=== PATIENT | male | born 1955 | race Caucasian/White ===

== ENCOUNTER 2017-11-18 12:56 | Day surgery (SDC) | payer OTHER ==
[2017-11-17 14:40] VITALS: BMI 29.7
[2017-11-18 13:35] LABS: #Eosinphils 0.2 thou/uL (0.0-0.7); #Lymphocytes 1.6 thou/uL (1.20-3.40); #Monocytes 0.7 thou/uL (0.11-0.59); #Neutrophils 5.1 thou/uL (1.40-6.50); %Basophils 0.6 % (0.0-1.0); %Eosinophils 2.5 % (0.0-10.0); %Lymphocytes 20.4 % (21.0-51.0); %Monocytes 9.6 % (0.0-10.0); %Neutrophils 66.9 % (42.0-75.0); Hemoglobin 14.8 g/dL (14.0-18.0); Mean Corpuscular Hemoglobin 30.5 pg (27.0-31.0); Mean Corpuscular Volume 89.7 fl (80.0-94.0); Mean Platelet Volume 8.6 fL (7.4-10.4); Platelet Count 176 thou/uL (130-400); RBC Distribution Width 12.7 % (11.5-14.5); Red Blood Cell (RBC) Count 4.85 mill/uL (4.70-6.10); White Blood Cell (WBC) Count 7.6 thou/uL (4.8-10.8)
[2017-11-18 13:46] LABS: INR-International Normal Ratio 1.1; PTT 28.1 SEC (22.9-36.1); Prothrombin Time 14.1 SEC (12.0-14.7)
[2017-11-18 13:56] LABS: Anion Gap 15 mmol/L (10-20); BUN (Urea Nitrogen) 13 mg/dL (8.4-25.7); Calc. Creatinine Clearance 134 mL/min (70-130); Calcium 9.8 mg/dL (7.8-10.44); Carbon Dioxide 23 mmol/L (23-31); Chloride 105 mmol/L (98-107); Estimated GFR-MDRD Greater than 90; Glucose 97 mg/dL (80-115); Potassium 4.5 mmol/L (3.5-5.1); Sodium 138 mmol/L (136-145)
[2017-11-18] MEDS ORDERED: Diprivan 40 ML ONE (14:14)
[2017-11-18] MEDS ORDERED: Lidocaine 2% PF 100 mg/5 ml Syringe ONE (14:14)
[2017-11-18] MEDS ORDERED: Heparin 10,000 UNITS/1 ML VIAL ONE (14:26)
[2017-11-18] MEDS ORDERED: Lidocaine 1% (PF) 30 ML VIAL ONE (14:28)
[2017-11-18] MEDS ORDERED: Propofol 1,000 MG/100 ML VIAL IV ONE (14:42)
--- NOTE | 2017-11-18 14:52 | ECHO ---
CARDIOLOGY PROCEDURE NOTE: Date: 11/18/17 PROCEDURE: Transesophageal echocardiogram. REASON FOR PROCEDURE: Mr. Nelson is a 62-year-old man with prior history of atrial flutter with prior ablation, who prese nts with recurrent atrial flutter. Xarelto was recently started. This has been going on for a couple of weeks at least. Therefore, a MAGDA was performed prior to planned possible ablation or cardioversio n. PROCEDURE DETAILS: The patient received propofol per anesthesia provider. After adequate level of sedation achieved, the standard transesophageal echocardiogram probe was passed into the esophagus without difficulty. Ritu ent tolerated procedure well. No complications noted. RESULTS: The Left atrium is upper limit normal at 4 cm in horizontal diameter. Left appendage is well visualiz ed and contains no clots. Left atrial appendage velocities are up to 70 cm per second. Four out of fo ur pulmonary veins were seen. Interatrial septum is free of defect. Mitral valve has trace regurgitat ion and very pliable with normal appearance. Left ventricular systolic function is preserved, LVEF ab out 65%. Normal wall thickness and chamber sizes noted. Right-sided chambers are normal in size. Hanna cardial space with trace effusion only. The visualized portion of the ascending and descending aorta without aneurysm or dissection, and only adherent atheroma noted in the descending portion. Aortic va lve is somewhat sclerotic, but not stenotic, and 3 leaflets identified. No significant aortic regurgi tation noted. Trace tricuspid regurgitation seen only. Pulmonic valve is not regurgitant, appears to be normal. CONCLUSION: 1. No intracardiac clots. 2. Normal left ventricular systolic function. 3. Upper limit normal left atrial size. 4. No significant valvular heart disease identified. PLAN: Proceed with the ablation procedure.
[2017-11-18] MEDS ORDERED: DOPamine 400 MG/D5W 250 ML 250 ML ONE (15:20)
[2017-11-18] MEDS ORDERED: Isoproterenol 0.2 MG/1 ML AMP ONE (15:20)
--- NOTE | 2017-11-18 20:18 | OP ---
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 He underwent MAGDA prior to procedure demonstrating no intracardiac clots. Normal LV function, normal left atrial size here for an assessment and possible remission of his arrhythmia circuit. PROCEDURE: The patient received deep sedation with propofol with Anesthesia specialist. After adequ ate level of sedation achieved and the right femoral venous area was prepped and anesthetized using s ubcutaneous lidocaine, the right femoral vein was accessed using ultrasound guidance and two 8-Dominican short sheath was introduced. A decapolar catheter was advanced to the right ventricle, right atrium , His bundle, and CS position. Pacing mapping and recording was performed in each location. Followi ng that, a pace mapping of the atrial flutter was performed. The shortest post-pacing interval was a chieved at the cavotricuspid isthmus very close to the tachycardia cycle length which is low about 26 0 milliseconds. Based on this, the decision was made to map and reablate the cavotricuspid isthmus. With the help of [employer] ST SF catheter, the right atrial map was obtained. The earliest a ctivations were seen in the base of the isthmus close to the IVC. During the activation mapping, flu tter terminated. Following that, a proximal CS pacing initiated and activation map was obtained in t his fashion as well. Earliest activation was clearly located at the base of the cavotricuspid isthmu s near to the inferior vena cava. An ablation was delivered in this area 20 seconds of burn was deli isaura. This successfully eliminated the leak through coming about cavotricuspid isthmus. Following that, the transisthmus time increased from initial 90 milliseconds to 180 milliseconds. The isthmus block was demonstrated by progressively lengthening transisthmus time measurements measured from late ral right atrium towards the line. A comprehensive EP study was also performed demonstrating borderline corrected sinus node recovery ti me at 480 milliseconds. AV Wenckebach cycle was 380 milliseconds. No VA conduction was demonstrated . The AV and ERP was 600/300 milliseconds without dual AV jackie physiology present. Burst atrial pa cing did not reinduce any atrial flutter or fibrillation. CONCLUSION: 1. Successful ablation of the recurrent cavotricuspid isthmus dependent atrial flutter. 2. No change in the cardiac silhouette pre and post-ablation. The patient remained seen lying jayson deng. PLAN: Discharge home after recovery period and resume Xarelto for a month.
== END 2017-11-18 18:45 | disposition home or self-care (01) ==
LOC: CCL 12:56
PROVIDERS: ATTEND Internal Medicine Cardiovascular Disease
PROC: 4A0274Z Measurement of Cardiac Electrical Activity, Via Natural or Artificial Opening (ICD-10-PCS; principal; 2017-11-18)
PROC: 4A027FZ Measurement of Cardiac Rhythm, Via Natural or Artificial Opening (ICD-10-PCS; 2017-11-18)
DX: I48.92 Unspecified atrial flutter (principal); Z79.01 Long term (current) use of anticoagulants; Z98.890 Other specified postprocedural states
CPT/HCPCS: 76942; 80048; 85025; 85610; 85730; 93005; 93010; 93312; 93613; 93623; 93653; C1730; C1769; J1265; J1644; J2001; J2704

== ENCOUNTER 2022-03-26 11:21 | Outpatient (CLI) | payer MEDICARE ==
[2022-03-26 12:37] LABS: Mean Corpuscular Hemoglobin 29.8 pg (27.0-33.0); Mean Corpuscular Volume 90.4 fl (81.2-95.1); Mean Platelet Volume 11.9 fl (7.4-10.4); Platelet Count 176 10x3/uL (150-450); RBC Distribution Width 13.7 % (11.5-14.5); Red Blood Cell (RBC) Count 4.36 10x6/uL (4.32-5.72); White Blood Cell (WBC) Count 9.4 10x3/uL (3.5-10.5)
[2022-03-26 12:49] LABS: Prothrombin Time 11.1 sec (9.5-12.1)
[2022-03-26 12:53] LABS: Anion Gap 15 mmol/L (10-20); BUN (Urea Nitrogen) 15 mg/dL (8.4-25.7); Calc. Creatinine Clearance 0 mL/min (70-130); Calcium 9.8 mg/dL (7.8-10.44); Carbon Dioxide 26 mmol/L (23-31); Chloride 108 mmol/L (98-107); Estimated GFR 95; Glucose 109 mg/dL (80-115); Potassium 4.6 mmol/L (3.5-5.1); Sodium 144 mmol/L (136-145)
== END 2022-03-26 11:22 | disposition home or self-care (01) ==
LOC: LABBT 11:21
PROVIDERS: ATTEND Internal Medicine Cardiovascular Disease
DX: Z01.812 Encounter for preprocedural laboratory examination (principal); L03.031 Cellulitis of right toe; Z20.822 Contact with and (suspected) exposure to COVID-19
CPT/HCPCS: 80048; 85027; 85610; 85730; 87811

== ENCOUNTER 2022-03-31 06:05 | Day surgery (SDC) | payer MEDICARE ==
[2022-03-29 13:21] VITALS: BMI 29.7
[2022-03-31] MEDS ORDERED: Heparin 10,000 UNITS/ 10 ML VIAL ONE ×2 (06:42→09:16)
[2022-03-31] MEDS ORDERED: Heparin 25,000 units/D5W 500 ML ONE (06:42)
[2022-03-31] MEDS ORDERED: Isoproterenol 0.2 MG/1 ML AMP ONE ×2 (06:42→08:31)
[2022-03-31] MEDS ORDERED: fentaNYL Citrate/PF 100 MCG/2 ML SYRINGE ONE (06:56)
[2022-03-31] MEDS ORDERED: Midazolam HCl 2 mg/2 ml Vial ONE (07:41)
[2022-03-31] MEDS ORDERED: Calcium Chloride 1 GM/10 ML Abboject SYRINGE ONE (09:36)
[2022-03-31] MEDS ORDERED: PHENYLEPHRINE-NS 100 MCG/ML 10 ML SYRINGE ONE (09:36)
[2022-03-31] MEDS ORDERED: ePHEDrine Sulfate 50 MG/10 ML VIAL ONE (09:36)
[2022-03-31] MEDS ORDERED: Glycopyrrolate 0.2 MG/ML 5 ML SYRINGE ONE (09:36)
[2022-03-31] MEDS ORDERED: Rocuronium Bromide 10 MG/ML (10ML VIAL) ONE (09:36)
[2022-03-31] MEDS ORDERED: Dexamethasone 20 MG/5 ML VIAL ONE (09:36)
[2022-03-31] MEDS ORDERED: PROPOFOL 200 MG/20 ML VIAL ONE (09:36)
[2022-03-31] MEDS ORDERED: Ondansetron PF 4 MG/2 ML Vial ONE (09:36)
[2022-03-31] MEDS ORDERED: Fentanyl 100 MCG/2 ML VIAL ONE (09:47)
[2022-03-31] MEDS ORDERED: Protamine Sulfate 50 MG/5 ML VIAL ONE (11:33)
[2022-03-31] MEDS ORDERED: Ketorolac Tromethamine 30 MG/ML VIAL ONE (11:36)
== END 2022-03-31 17:00 | disposition home or self-care (01) ==
LOC: SDC 06:05
PROVIDERS: ATTEND Internal Medicine Cardiovascular Disease
PROC: B244ZZ3 Ultrasonography of Right Heart, Intravascular (ICD-10-PCS; principal; 2022-03-31)
PROC: 02583ZZ Destruction of Conduction Mechanism, Percutaneous Approach (ICD-10-PCS; 2022-03-31)
PROC: 02K83ZZ Map Conduction Mechanism, Percutaneous Approach (ICD-10-PCS; 2022-03-31)
PROC: 4A023FZ Measurement of Cardiac Rhythm, Percutaneous Approach (ICD-10-PCS; 2022-03-31)
PROC: 4A0234Z Measurement of Cardiac Electrical Activity, Percutaneous Approach (ICD-10-PCS; 2022-03-31)
DX: I48.0 Paroxysmal atrial fibrillation (principal); I48.3 Typical atrial flutter; Z79.01 Long term (current) use of anticoagulants; Z79.82 Long term (current) use of aspirin; Z79.899 Other long term (current) drug therapy; Z95.1 Presence of aortocoronary bypass graft
CPT/HCPCS: 85347; 93005; 93613; 93622; 93623; 93655; 93656; 93662; J1100; J1644; J1885; J2250; J2405; J2704; J2710; J2720; J3010

== ENCOUNTER 2023-11-14 10:40 | Outpatient (CLI) | payer MEDICARE ==
[2023-11-14] MEDS ORDERED: E-Z-HD 98% W/W 340GM BOT (x-ray ONLY) ONE (11:02)
== END 2023-11-14 10:41 | disposition home or self-care (01) ==
LOC: RAD 10:40
PROVIDERS: ATTEND Otolaryngology
DX: R13.10 Dysphagia, unspecified (principal); K21.9 Gastro-esophageal reflux disease without esophagitis
CPT/HCPCS: 74230

== ENCOUNTER 2025-05-09 09:46 | Outpatient (CLI) | payer MEDICARE | END 2025-05-09 09:47 | disposition home or self-care (01) | LOC: RAD 09:46 | PROVIDERS: ATTEND Internal Medicine Critical Care Medicine | DX: R06.00 Dyspnea, unspecified (principal); I51.7 Cardiomegaly | CPT/HCPCS: 71046 ==